=== PATIENT | female | born 1985 | race African-American/Black ===

== ENCOUNTER 2017-08-17 16:38 | Emergency (ER) | payer SELFPAY ==
[~2017-08-17] VITALS: Ht 167.6 cm; Wt 132.4 kg
[2017-08-17 18:24] VITALS: BP 140/91
--- NOTE | 2017-08-17 18:36 | Emergency Room Report ---
History of Present Illness General Chief Complaint: Pain Source: Patient Present Illness HPI 32 y.o. F with no sig pmhx, here c.o several months of left leg numbness. pt mentions few days ago, she felt pain in left knee and felt the left leg numbness in her thigh increased. pt also c/o bl leg swelling. rates pain in left knee(denies injury) 3/, no radiation, no tingling/numbness, has been taking ibuprofen with improvement. pt has a sedentary life style, mentions pain worsens when sitting for prolonged time and standing for long. denies calf pain , tenderness, sob, palpitation, cp.denies recent surgery and travel Allergies: Coded Allergies: No Known Allergies (Unverified , 08/17/17) Patient History Past Medical History: see triage record Pertinent Family History: none Last Menstrual Period: 07/15/17 Now: No : 0 Para: 0 Immunizations: UTD Reviewed Nursing Documentation: PMH: Agreed; PSxH: Agreed Nursing Documentation-PMH Past Medical History: No Stated History Review of Systems All Other Systems: negative except mentioned in HPI Physical Exam Vital Signs Date Time Temp Pulse Resp B/P (MAP) Pulse Ox O2 Delivery O2 Flow Rate FiO2 08/17/17 17:12 98.4 74 18 140/91 97 Room Air 98.4 Sp02 EP Interpretation: reviewed, normal General Appearance: normal inspection, well appearing, no apparent distress, alert, GCS 15, non-toxic Head: normocephalic Eyes: bilateral eye normal inspection, bilateral eye PERRL ENT: normal ENT inspection, hearing grossly normal, normal pharynx Neck: normal inspection, full range of motion, supple Respiratory: normal inspection, chest non-tender, lungs clear, normal breath sounds, no rhonchi Cardiovascular #1: normal inspection, normal peripheral pulses, regular rate, rhythm, no edema, no gallop, no JVD, no murmur, no rub Cardiovascular #2: 2+ dorsalis pedis (R), 2+ dorsalis pedis (L) Gastrointestinal: normal inspection, normal bowel sounds, non tender, soft Rectal: deferred Genitourinary: deferred Musculoskeletal: back normal, swelling - bilateral claf, other - varicose vein left leg Neurologic: normal inspection, alert, oriented x3, responsive, 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 F with no sig pmhx, here c.o several months of left leg numbness. pt mentions few days ago, she felt pain in left knee and felt the left leg numbness in her thigh increased. pt also c/o bl leg swelling. rates pain in left knee(denies injury) /, no radiation, no tingling/numbness, has been taking ibuprofen with improvement. pt has a sedentary life style, mentions pain worsens when sitting for prolonged time and standing for long. denies calf pain , tenderness, sob, palpitation, cp.denies recent surgery and travel Ddx considered but are not limited to venous insufficiency, neuropathy, DVT Vital signs: are WNL, pt. is afebrile H&PE are most consistent with venous insufficiency ORDERS: none required at this time, the diagnosis is clinical ED INTERVENTIONS: None required at this time. Last Vital Signs Date Time Temp Pulse Resp B/P (MAP) Pulse Ox O2 Delivery O2 Flow Rate FiO2 08/17/17 18:24 98.4 74 18 140/91 97 Room Air 98.4 Disposition: HOME, SELF-CARE Condition: Stable Referrals: NOT CHOSEN IPA/MD,REFERRING (PCP) Patient Instructions: Restless Legs Syndrome, Venous Stasis or Chronic Venous Insufficiency Additional Instructions: f/u with pcp, elevate legs, avoid sitting or standing for prolonged time, wear compression stockings. f/u pcp for labs regarding leg numbness. weight loss advisd. Jaycee Roblero Aug 17, 2017 18:36
[2017-08-17 18:46] VITALS: BP 140/91
== END 2017-08-17 18:47 | disposition home or self-care (01) ==
LOC: EDSEX 16:38 → EMR 17:55
DX: R20.2 Paresthesia of skin (principal); I87.2 Venous insufficiency (chronic) (peripheral)
CPT/HCPCS: 99282